=== PATIENT | female | born 1955 | race Caucasian/White ===

== ENCOUNTER → 2020-10-12 13:04 | Outpatient (CLI) | payer MEDICARE, SELFPAY ==
--- NOTE | ~2020-10-12 | MM_ITS ---
EXAMINATION: MM screening [facility] w hilary HISTORY: Screening TECHNIQUE: Craniocaudal and mediolateral oblique 3-D tomosynthesis images were obtained and synthetic 2-D images were generated. CAD analysis was submitted and interpreted. COMPARISON: No prior mammogram is available for comparison at this institution. BREAST PARENCHYMAL COMPOSITION: The breasts are heterogeneously dense, which may obscure small masses . FINDINGS: There is no evidence of suspicious mass, calcification, or architectural distortion to sugg est malignancy in either breast. There has been no suspicious interval change. IMPRESSION: 1. No mammographic evidence of malignancy. 2. Recommend routine screening mammography in one year. BI-RADS Category 1: Negative Reviewed, dictated and finalized at location A. [employer]
--- NOTE | ~2020-10-12 | DEXA_ITS ---
Bone Density Report Name: Qiana Croft Age: 65 Sex: Female Ethnicity: White Date of : 1955 Indication: postmenopausal; screening for osteoporosis; height loss; prior fracture; Referring Provider: CLAUDIA BREWSTER Study: Bone densitometry was performed. Exam Date: October 12, 2020 Accession number: [id number] Bone Density: Region BMD T-score Z-score Classification AP Spine (L1-L4) 1.032 -0.1 1.7 Normal Femoral Neck (Left) 0.764 -0.8 0.8 Normal Total Hip (Left) 1.060 1.0 2.3 Normal Femoral Neck (Right) 0.760 -0.8 0.8 Normal Total Hip (Right) 0.971 0.2 1.5 Normal Total Hip Mean 1.016 0.6 1.9 Normal World Health Organization criteria for BMD impression classify patients as: Normal (T-score at or above -1.0), Osteopenia (T-score between -1.0 and -2.5), or Osteoporosis (T-score at or below -2.5). 10-year Fracture Risk: FRAX not reported because: All T-scores for Spine Total, Hip Total, Femoral Neck at or above -1.0 Previous Exams: Region Exam Age BMD T-score BMD Change BMD Change Date g/cm2 vs Baseline vs Previous AP Spine(L1-L4) 10/12/2020 65 1.032 -0.1 -0.014 -0.066* 07/15/2016 61 1.098 0.5 0.051* 0.000 11/02/2011 56 1.097 0.5 0.051* 0.051* 07/16/2008 53 1.046 0.0 Total Hip(Left) 10/12/2020 65 1.060 1.0 -0.084* -0.030* 07/15/2016 61 1.090 1.2 -0.054* -0.041* 11/02/2011 56 1.131 1.5 -0.014 -0.014 07/16/2008 53 1.145 1.7 Total Hip(Right) 10/12/2020 65 0.971 0.2 -0.130* -0.044* 07/15/2016 61 1.016 0.6 -0.086* -0.041* 11/02/2011 56 1.056 0.9 -0.045* -0.045* 07/16/2008 53 1.101 1.3 *Denotes significance at 95% confidence level, LSC for AP Spine = 0.022 g/cm2, LSC for Total Hip = 0.027 g/cm2 Clinical Information Provided by Patient: Has had a low trauma fracture Has used the following medications: Vitamin D Patient maximum height was 66.75 Menopause Age: 53 No regular weight bearing exercise Drinks caffeinated beverages Onset of menses at age 11 Number of children 3 Impression: The patient has normal bone mass. The patient has risk factors, including: previous fracture. The BMD for the AP Spine(L1-L4) decreased, changing by -0.066 since the last DXA exam. The BMD for the Total Hip(Left) decreased, changing by -0.030 si
== END ==
PROVIDERS: Visit Provider Obstetrics & Gynecology Gynecology
DX: Z12.31 Encounter for screening mammogram for malignant neoplasm of breast (principal); Z78.0 Asymptomatic menopausal state
CPT/HCPCS: 77063; 77067; 77080

== ENCOUNTER → 2021-11-08 01:00 | Outpatient (CLI) | payer MEDICARE, SELFPAY ==
[2021-11-08 21:22] LABS: SARS-CoV-2 RNA PCR Negative
== END ==
PROVIDERS: Visit Provider Internal Medicine Gastroenterology
DX: Z01.812 Encounter for preprocedural laboratory examination (principal); Z20.822 Contact with and (suspected) exposure to COVID-19
CPT/HCPCS: C9803; U0003; U0005

== ENCOUNTER 2021-11-11 02:10 | Day surgery (SDC) | payer MEDICARE, SELFPAY ==
[2021-10-25 10:20] VITALS: BMI 37.5
--- NOTE | 2021-11-10 13:33 | PM.HPGS ---
History of Present Illness History of Present Illness Consent: Risks, benefits, and alternatives have been discussed and questions answered. Patient agrees to proceed with procedure. Chief complaint: positive cologuard Narrative: Qiana Croft is a 66 year old female referred for colon cancer screening. Her recent Cologuard test was positive Review of Systems Review of Systems: All systems reviewed & are unremarkable except as noted in HPI and below PMFSH Past Medical History Medical History Arthritis Chronic back pain DDD (degenerative disc disease) GERD (gastroesophageal reflux disease) Hypothyroidism Irregular heartbeat UTI (urinary tract infection) Surgical History Surgical History H/O breast biopsy H/O tubal ligation History of cholecystectomy Family History Family History Grandparent Family history of malignant neoplasm Sibling Family history of malignant melanoma Father Family history of primary malignant neoplasm of liver Other Malignant neoplasm of prostate Social History Social History Smoking status: Never smoker Alcohol intake: never Substance use: never Substance use type: does not use Living arrangements: with family Gender identity (if verbalized by the patient): Female Spiritual care concerns: No Meds Home Medications and Allergies Home Medications Medication Instructions Recorded Confirmed Type clotrimazole-betamethasone applic TOPICAL DAILY 10/25/21 History levothyroxine 125 mcg PO DAILY 10/25/21 10/25/21 History simvastatin 10 mg PO DAILY 10/25/21 10/25/21 History Allergies Allergy/AdvReac Type Severity Reaction Status Date / Time No Known Allergies Allergy Mild Verified 11/11/21 08:16 Exam Resp: Auscultation: clear to auscultation bilaterally Cardio: Rate: regular rate Rhythm: regular rhythm GI: GI Palp: Yes Soft to palpation and No Tenderness to palpation present (GI) Assessment and Plan Assessment and plan (1) Colon cancer screening: Code(s): Z12.11 - Encounter for screening for malignant neoplasm of colon Status: Acute Assessment and Plan: Colonoscopy with possible biopsy or polypectomy or cautery or injection of substances.
[2021-11-11 08:17] VITALS: BP 146/75; PULSE 85; RESP 20; TEMP 36.1; O2SAT 97
[2021-11-11] MEDS: LACTATED RINGERS 1,000 ML 150 ML IV CONT (08:25)
--- NOTE | 2021-11-11 08:59 | P.PNAN_ITS ---
Anes - Initial Pre Proc Eval Procedure: Operation Date: 11/11/21 09:30 Proposed Procedures p Colonoscopy - Sunny Tiwari MD Date/Time: 11/11/21 08:59 Surgeon: Sunny Tiwari MD Pre Op Diagnosis: positive cologuard Patient Data Age: 66 Gender: F Height: 1.68 m Weight: 110.4 kg Last Vital Signs Temp 97 F L 11/11/21 08:17 Pulse 85 11/11/21 08:17 Resp 20 11/11/21 08:17 BP 146/75 H 11/11/21 08:17 Pulse Ox 97 11/11/21 08:17 Allergies Allergy/AdvReac Type Severity Reaction Status Date / Time No Known Allergies Allergy Mild Verified 11/11/21 08:16 Home Medications Medication Instructions Recorded Confirmed Type clotrimazole-betamethasone applic TOPICAL DAILY 10/25/21 History levothyroxine 125 mcg PO DAILY 10/25/21 10/25/21 History simvastatin 10 mg PO DAILY 10/25/21 10/25/21 History Patient hx anesthesia problems: none Family hx anesthesia problems: none Results Review: All pre-operative results and documents have been reviewed as part of the pre-operative evaluation. [facility] Past Medical History Medical History (Updated 11/10/21 @ 13:34 by Sunny Tiwari MD) Arthritis Chronic back pain DDD (degenerative disc disease) GERD (gastroesophageal reflux disease) Hypothyroidism Irregular heartbeat UTI (urinary tract infection) Surgical History Surgical History (Updated 11/05/19 @ 22:39 by Ruperto Jensen) H/O breast biopsy H/O tubal ligation History of cholecystectomy Family History Family History (Updated 07/03/14 @ 07:13 by DOCTOR UNKNOWN) Grandparent Family history of malignant neoplasm Sibling Family history of malignant melanoma Father Family history of primary malignant neoplasm of liver Other Malignant neoplasm of prostate Social History Social History (Updated 11/05/19 @ 22:39 by Ruperto Jensen) Smoking status: Never smoker Alcohol intake: never Substance use: never Substance use type: does not use Living arrangements: with family Gender identity (if verbalized by the patient): Female Spiritual care concerns: No Anes - Eval Final PreProcedure Day of Procedure 11/11/21 08:59 Patient weight: morbidly obese Heart: regular rate and rhythm Lungs: clear to auscultation Airway: Mallampati scale class II Neurological: alert and oriented Last oral intake: >/= 8 hours ASA classification: III Emergent: no Anesthetic plan: proceed Anesthesia type and monitoring: general GIVS and standard monitoring Results Review: All pre-operative results and documents have been reviewed as part of the pre-operative evaluation. Informed Consent: The patient's anesthetic plan and its attendant risks and benefits were discussed with the patient/family/POA. Questions were solicited and answers provided to the satisfaction of the patient/family/POA.
[2021-11-11 09:35] VITALS: BP 133/65; PULSE 64; RESP 17; O2SAT 97
[2021-11-11 09:45] VITALS: BP 130/63; PULSE 65; RESP 17; O2SAT 96
[2021-11-11 09:55] VITALS: BP 149/91; PULSE 66; RESP 17; O2SAT 95
== END 2021-11-11 10:05 | disposition home or self-care (01) ==
PROVIDERS: Visit Provider Internal Medicine Gastroenterology
PROC: 0DJD8ZZ Inspection of Lower Intestinal Tract, Via Natural or Artificial Opening Endoscopic (ICD-10-PCS; CPT 45378; principal; 2021-11-11 09:30)
DX: Z12.11 Encounter for screening for malignant neoplasm of colon (principal); K62.1 Rectal polyp; R19.5 Other fecal abnormalities; K57.30 Diverticulosis of large intestine without perforation or abscess without bleeding; E03.9 Hypothyroidism, unspecified; M19.90 Unspecified osteoarthritis, unspecified site; K21.9 Gastro-esophageal reflux disease without esophagitis; R00.8 Other abnormalities of heart beat; E66.9 Obesity, unspecified; Z68.39 Body mass index [BMI] 39.0-39.9, adult
CPT/HCPCS: 45380; 88305; J2001; J2704; J7120

== ENCOUNTER → 2022-01-26 12:57 | Outpatient (CLI) | payer MEDICARE, SELFPAY ==
--- NOTE | ~2022-01-26 | MM_ITS ---
EXAMINATION: MM screening [facility] BI w hilary HISTORY: . Screening TECHNIQUE: Craniocaudal and mediolateral oblique 3-D tomosynthesis images were obtained and synthetic 2-D images were generated. CAD analysis was submitted and interpreted. COMPARISON: 10/12/2020, 10/23/2017 bilateral screening mammogram examinations BREAST PARENCHYMAL COMPOSITION: There are scattered areas of fibroglandular density. FINDINGS: There are 2 biopsy markers on the right; history of prior benign right breast biopsies in 2016. Stable mild fibroglandular asymmetry. Scattered benign calcifications. There is no evidence of suspicious mass, calcification, or architectural distortion to suggest malign willard in either breast. There has been no suspicious interval change. IMPRESSION: 1. No mammographic evidence of malignancy. 2. Recommend routine screening mammography in one year. BI-RADS Category 2: Benign finding(s). Reviewed, dictated and finalized at location A.
== END ==
PROVIDERS: Visit Provider Obstetrics & Gynecology Gynecology
DX: Z12.31 Encounter for screening mammogram for malignant neoplasm of breast (principal)
CPT/HCPCS: 77063; 77067

== ENCOUNTER → 2023-01-30 10:46 | Outpatient (CLI) | payer MEDICARE, SELFPAY ==
--- NOTE | ~2023-01-30 | MM_ITS ---
EXAMINATION: MM screening [facility] w hilary HISTORY: Screening TECHNIQUE: Craniocaudal and mediolateral oblique 3-D tomosynthesis images were obtained and synthetic 2-D images were generated. CAD analysis was submitted and interpreted. COMPARISON: Comparison to multiple prior studies sequentially, with oldest reviewed study dated 07/2016. BREAST PARENCHYMAL COMPOSITION: The breasts are heterogeneously dense, which may obscure small masses FINDINGS: Bilateral breast asymmetries are stable. There are benign breast calcifications. There is n o evidence of suspicious mass, calcification, or architectural distortion to suggest malignancy in ei ther breast. There has been no suspicious interval change. IMPRESSION: 1. No mammographic evidence of malignancy. 2. Recommend routine screening mammography in one year. BI-RADS Category 2: Benign finding(s). Reviewed, dictated and finalized at location A.
== END ==
PROVIDERS: PCP Obstetrics & Gynecology Gynecology; Visit Provider Obstetrics & Gynecology Gynecology
DX: Z12.31 Encounter for screening mammogram for malignant neoplasm of breast (principal)
CPT/HCPCS: 77063; 77067

== ENCOUNTER 2024-02-02 11:11 | Outpatient (CLI) | payer MEDICARE, SELFPAY ==
--- NOTE | ~2024-02-02 | MM_ITS ---
EXAMINATION: MM screening [facility] w hilary HISTORY: Screening mammogram TECHNIQUE: Craniocaudal and mediolateral oblique 3-D tomosynthesis images were obtained and synthetic 2-D images were generated. CAD analysis was submitted and interpreted. COMPARISON: 01/30/2023, 01/26/2022 bilateral screening mammogram examinations BREAST PARENCHYMAL COMPOSITION: There are scattered areas of fibroglandular density. FINDINGS: 2 biopsy markers are present on the right; history of 2 prior benign right breast biopsies. Scattered bilateral benign calcifications. There is no evidence of suspicious mass, calcification, or architectural distortion to suggest malignancy in either breast. There has been no suspicious interv al change. IMPRESSION: 1. No mammographic evidence of malignancy. 2. Recommend routine screening mammography in one year. BI-RADS Category 2: Benign finding(s). Reviewed, dictated and finalized at location A.
== END 2024-02-02 11:12 ==
LOC: MICIMG 11:13
PROVIDERS: PCP Obstetrics & Gynecology Gynecology; Visit Provider Obstetrics & Gynecology Gynecology
DX: Z12.31 Encounter for screening mammogram for malignant neoplasm of breast (principal)
CPT/HCPCS: 77063; 77067

== ENCOUNTER 2025-02-03 11:28 | Outpatient (CLI) | payer MEDICARE, SELFPAY ==
--- NOTE | ~2025-02-03 | MM_ITS ---
EXAMINATION: MM screening [facility] BI w hilary HISTORY: Screening mammogram TECHNIQUE: Craniocaudal and mediolateral oblique 3-D tomosynthesis images were obtained and synthetic 2-D images were generated. CAD analysis was submitted and interpreted. COMPARISON: 02/02/2024, 01/30/2023, 01/26/2022, 10/12/2020 BREAST PARENCHYMAL COMPOSITION:Not Dense. There are scattered areas of fibroglandular density. FINDINGS: No suspicious mass, calcification, or architectural distortion are identified in either shari ast to suggest malignancy. There has been no suspicious interval change. IMPRESSION: No mammographic evidence of malignancy. Recommend routine screening mammography in one year. BI-RADS Category 1: Negative Reviewed, dictated and finalized at location .
== END 2025-02-03 11:29 | disposition home or self-care (01) ==
LOC: MICIMG 11:30
PROVIDERS: PCP Obstetrics & Gynecology Gynecology; Visit Provider Obstetrics & Gynecology Gynecology
DX: Z12.31 Encounter for screening mammogram for malignant neoplasm of breast (principal)
CPT/HCPCS: 77063; 77067

== ENCOUNTER 2025-03-21 09:19 | Outpatient (CLI) | payer MEDICARE, SELFPAY ==
--- NOTE | ~2025-03-21 | DEXA_ITS ---
Bone Density Report Name: CLEVELAND MEDRANO Age: 69 Sex: Female Ethnicity: White Date of : 1955 Indication: postmenopausal; screening for osteoporosis; Referring Provider: CLAUDIA BREWSTER Study: Bone densitometry was performed. Exam Date: March 21, 2025 Accession number: [id number] Bone Density: Region BMD T-score Z-score Classification AP Spine(L1-L4) 1.079 0.3 2.4 Normal Femoral Neck (Left) 0.694 -1.4 0.4 Osteopenia Total Hip (Left) 1.057 0.9 2.5 Normal Femoral Neck (Right) 0.665 -1.7 0.2 Osteopenia Total Hip (Right) 0.992 0.4 2.0 Normal Total Hip Mean 1.024 0.7 2.3 Normal World Health Organization criteria for BMD impression classify patients as: Normal (T-score at or above -1.0), Osteopenia (T-score between -1.0 and -2.5), or Osteoporosis (T-score at or below -2.5). 10-year Fracture Risk(1): Major Osteoporotic Fracture 9.2% Hip Fracture 1.4% Reported Risk Factors: [place] (), Neck BMD=0.665, BMI=40.5 (1) FRAX(R) Version 3.08. Fracture probability calculated for an untreated patient. Fracture probability may be lower if the patient has received treatment. Previous Exams: -- Region Exam Age BMD T-score BMD Change BMD Change Date g/cm2 vs Baseline vs Previous -- AP Spine (L1-L4) 03/21/2025 69 1.079 0.3 3.1%* 4.5%* 10/12/2020 65 1.032 -0.1 -1.4% -6.0%* 07/15/2016 61 1.098 0.5 4.9%* 0.0% 11/02/2011 56 1.097 0.5 4.9%* 4.9%* 07/16/2008 53 1.046 0.0 Total Hip(Left) 03/21/2025 69 1.057 0.9 -7.7%* -0.3% 10/12/2020 65 1.060 1.0 -7.4%* -2.7%* 07/15/2016 61 1.090 1.2 -4.8%* -3.6%* 11/02/2011 56 1.131 1.5 -1.2% -1.2% 07/16/2008 53 1.145 1.7 Total Hip(Right) 03/21/2025 69 0.992 0.4 -9.9%* 2.1% 10/12/2020 65 0.971 0.2 -11.8%* -4.4%* 07/15/2016 61 1.016 0.6 -7.8%* -3.9%* 11/02/2011 56 1.056 0.9 -4.1%* -4.1%* 07/16/2008 53 1.101 1.3 -- *Denotes significance at 95% confidence level, LSC for AP Spine = 0.022 g/cm2, LSC for Total Hip = 0.027 g/cm2 Clinical Information Provided by Patient: Has used the following medications: Vitamin D, Calcium Patient maximum height was 66 Menopause Age: 53 No regular weight bearing exercise Drinks caffeinated beverages Onset of menses at age 11 Number of children 3 Impression: The patient has low bone mass, based on the Right Femoral Neck T-score. The patient has an estimated ten-year risk of hip fracture of 1.4% and an estimated ten-year risk of major fracture of 9.2%, based on the WHO FRAX algorithm. No significant bone loss was observed. Discussion: BONE DENSITY IS LOW AT ONE OR MORE SKELETAL SITES. This patient's lowest T-score is low at one or more skeletal sites. It meets the World Health Organization's (WHO) criteria for “low bone mass” (T-score between -1.0 and -2.5). The patient's 10-year risk of fracture as calculated by FRAX is less than the threshold where pharmacological therapy is recommended by the National Osteoporosis Foundation (NOF). However, all treatment decisions require clinical judgment and consideration of individual patient factors, including patient preferences, comorbidities, previous drug use, risk factors not captured in the FRAX model (e.g., frailty, falls, vitamin D deficiency, increased bone turnover, interval significant decline in bone density) and possible under or overestimation of fracture risk by FRAX. The patient should follow a healthful lifestyle (good nutrition with adequate calcium and vitamin D, and appropriate weight-bearing exercise). Follow-Up: Consider repeating this study in 2 to 3 years to reassess this patient's status, or sooner if there is some new clinical indication. Reported by: MISHA on 03/26/2025 8:39:00 AM. Reviewed, dictated and finalized at location A.
== END 2025-03-21 09:20 | disposition home or self-care (01) ==
PROVIDERS: PCP Obstetrics & Gynecology Gynecology; Visit Provider Obstetrics & Gynecology Gynecology
DX: Z78.0 Asymptomatic menopausal state (principal); M85.852 Other specified disorders of bone density and structure, left thigh; M85.851 Other specified disorders of bone density and structure, right thigh
CPT/HCPCS: 77080